=== PATIENT | male | born 1995 | race Caucasian/White ===

== ENCOUNTER 2017-07-19 00:29 | Emergency (ER) | payer BC ==
--- NOTE | 2017-07-19 00:32 | EDPHY ---
H & P Time Seen by Provider: 07/19/17 00:30 HPI/ROS: Chief Complaint: Alcohol intoxication, vomiting HPI: 22-year-old male who was found at a friend's apartment intoxicated. Patient passed out after vomiting. Is unable to ambulate on their own. Patient brought in by EMS for further evaluation. No obvious signs of trauma per EMS. Remainder of history is unobtainable secondary to the patient's intoxication. ROS: Unobtainable secondary to the patient's intoxication PMH: Anxiety Medications: Ativan Allergies: Unknown Social History: Positive for alcohol Family History: non-contributory Physical Exam: Gen: Somnolent, responds to painful stimuli, maintaining airway, smells of alcohol and emesis HEENT: Atraumatic Nose: no epistaxis or deformity Eyes: PERRLA, EOMI Mouth: Moist mucosa Neck: Supple, no step-offs or deformity Chest: Atraumatic, lungs clear to auscultation Heart: S1, S2 normal, no murmur Abd: Soft, non-tender, no guarding Back: Atraumatic Ext: no edema, atraumatic Skin: no rash Neuro: Sensation grossly intact, Strength 5/5 in bilateral upper and lower extremities Constitutional: Initial Vital Signs Temperature (C) 36.2 C 07/19/17 00:50 Heart Rate 67 07/19/17 00:50 Respiratory Rate 18 07/19/17 00:50 Blood Pressure 117/97 H 07/19/17 00:50 O2 Sat (%) 93 07/19/17 00:50 O2 Delivery Mode Room Air Allergies/Adverse Reactions: No Known Allergies Allergy (Unverified 07/19/17 00:49) Home Medications: Medication Instructions Recorded Ativan 07/19/17 Departure - Departure Disposition: Home, Routine, Self-Care Clinical Impression: Alcoholic intoxication Condition: Good Instructions: Alcohol Intoxication (ED) Referrals: TANJA Cota,. [Clinic] - As per Instructions
[2017-07-19 00:53] VITALS: TEMP 97.2
[2017-07-19 06:23] VITALS: BP 117/66; PULSE 72; RESP 18; O2SAT 96
== END 2017-07-19 07:06 | disposition home or self-care (01) ==
LOC: EDBD 00:29
DX: F10.129 Alcohol abuse with intoxication, unspecified (principal)